=== PATIENT | male | born 1995 | race Caucasian/White ===

== ENCOUNTER 2023-03-03 20:19 | Emergency (ER) | payer OTHER ==
[~2023-03-03] VITALS: Ht 172.7 cm; Wt 104.3 kg
[2023-03-03 20:23] VITALS: BP 156/77; PULSE 82; RESP 16; TEMP 97.4; O2SAT 99
[2023-03-03] MEDS ORDERED: KETOROLAC 60 MG/2 ML VIAL IM ONE (23:15)
[2023-03-03] MEDS ORDERED: NAPR-1717 PO (23:40)
[2023-03-03 23:58] VITALS: BP 156/77; PULSE 82; RESP 16; TEMP 97.4; O2SAT 99
== END 2023-03-03 23:58 | disposition home or self-care (01) ==
LOC: MED 20:19
DX: S82.832A Other fracture of upper and lower end of left fibula, initial encounter for closed fracture (principal); Z79.899 Other long term (current) drug therapy; W23.0XXA Caught, crushed, jammed, or pinched between moving objects, initial encounter; Y93.89 Activity, other specified; Y92.89 Other specified places as the place of occurrence of the external cause; Y99.8 Other external cause status
CPT/HCPCS: 29515; 73610; 73630; 96372; 99284; J1885

== ENCOUNTER 2023-03-27 17:25 | Emergency (ER) | payer OTHER ==
[~2023-03-27] VITALS: Ht 167.6 cm; Wt 90.7 kg
[~2023-03-27 17:25] MED LIST: NAPR-1717 PO
[2023-03-27 18:03] VITALS: BP 125/66; PULSE 86; RESP 18; TEMP 97; O2SAT 98
[2023-03-27 18:52] VITALS: BP 125/66; PULSE 86; RESP 18; TEMP 97; O2SAT 98
== END 2023-03-27 18:53 | disposition home or self-care (01) ==
LOC: MED 17:25
DX: Z46.89 Encounter for fitting and adjustment of other specified devices (principal); Z79.899 Other long term (current) drug therapy
CPT/HCPCS: 29515; 99283